=== PATIENT | male | born 1985 | race African-American/Black ===

== ENCOUNTER 2020-03-22 06:32 | Emergency (ER) | payer OTHER ==
[~2020-03-22] VITALS: Ht 180.3 cm; Wt 87.0 kg
[2020-03-22] MEDS ORDERED: IBUPROFEN 600MG TABLET PO ONE (10:15)
[2020-03-22 10:27] VITALS: BP 142/78
== END 2020-03-22 10:27 | disposition home or self-care (01) ==
LOC: ER 06:32
DX: R51.9 Headache, unspecified (principal); F12.10 Cannabis abuse, uncomplicated; F17.200 Nicotine dependence, unspecified, uncomplicated
CPT/HCPCS: 99284

== ENCOUNTER 2020-11-08 11:58 | Emergency (ER) | payer OTHER ==
[~2020-11-08] VITALS: Ht 170.2 cm; Wt 91.0 kg
[2020-11-08 12:02] VITALS: BP 125/72
== END 2020-11-08 15:58 | disposition left against medical advice (07) ==
LOC: ER 12:05
DX: Z53.21 Procedure and treatment not carried out due to patient leaving prior to being seen by health care provider (principal); I49.9 Cardiac arrhythmia, unspecified
CPT/HCPCS: 93005; 99283

== ENCOUNTER 2020-12-04 18:38 | Emergency (ER) | payer OTHER ==
[~2020-12-04] VITALS: Ht 177.8 cm; Wt 90.0 kg
[2020-12-04 18:57] VITALS: BP 128/86
[2020-12-04] MEDS ORDERED: DIAZEPAM 5 MG/ML 2ML CPJ IM ONE (19:45)
[2020-12-04] MEDS ORDERED: HALOPERIDOL 5MG TABLET PO ONE (19:45)
== END 2020-12-04 20:30 | disposition left against medical advice (07) ==
LOC: ER 18:38
DX: F15.10 Other stimulant abuse, uncomplicated (principal); F32.9 Major depressive disorder, single episode, unspecified; I10 Essential (primary) hypertension; F12.10 Cannabis abuse, uncomplicated
CPT/HCPCS: 96372; 99283; J1630; J3360

== ENCOUNTER 2020-12-16 20:41 | Emergency (ER) | payer OTHER ==
[~2020-12-16] VITALS: Ht 190.5 cm; Wt 118.0 kg
[2020-12-16 20:48] VITALS: BP 167/96
== END 2020-12-16 23:48 | disposition left against medical advice (07) ==
LOC: ER 20:41
DX: Z53.21 Procedure and treatment not carried out due to patient leaving prior to being seen by health care provider (principal); F41.9 Anxiety disorder, unspecified

== ENCOUNTER 2020-12-17 03:18 | Emergency (ER) | payer MEDICAID, OTHER ==
[~2020-12-17] VITALS: Ht 185.4 cm; Wt 106.0 kg
[2020-12-17 03:27] VITALS: BP 152/94
== END 2020-12-17 03:47 | disposition home or self-care (01) ==
LOC: ER 03:18
DX: F15.10 Other stimulant abuse, uncomplicated (principal); F12.10 Cannabis abuse, uncomplicated; F41.9 Anxiety disorder, unspecified; I10 Essential (primary) hypertension; F32.9 Major depressive disorder, single episode, unspecified
CPT/HCPCS: 99283